=== PATIENT | male | born 1985 | race Caucasian/White ===

== ENCOUNTER 2017-08-20 22:29 | Emergency (ER) | payer SELFPAY ==
[~2017-08-20] VITALS: Ht 172.7 cm; Wt 66.0 kg
[2017-08-20 22:38] VITALS: BP 136/83
== END 2017-08-21 02:00 | disposition home or self-care (01) ==
LOC: ER 22:29
DX: R11.2 Nausea with vomiting, unspecified (principal); R51 Headache; F17.200 Nicotine dependence, unspecified, uncomplicated
CPT/HCPCS: 99283